=== PATIENT | male | born 1955 | race Caucasian/White ===

== ENCOUNTER 2016-12-31 04:13 | Inpatient (IN) ==
[2016-12-24 13:03] LABS: MANUAL DIFF NEEDED? NO
[2016-12-24 13:03] LABS: URINE MICRO REVIEW NEEDED? NO; URINE SOURCE CLEAN CATCH
[2016-12-24 13:31] LABS: BILIRUBIN URINE NEGATIVE (NEGATIVE); BLOOD URINE NEGATIVE (NEGATIVE); COLOR YELLOW; GLUCOSE URINE NEGATIVE (NEGATIVE); LEUKOCYTES URINE NEGATIVE (NEGATIVE); NITRITE URINE NEGATIVE (NEGATIVE); PROTEIN URINE NEGATIVE (NEGATIVE); SP GRAVITY URINE 1.019; TURBIDITY URINE CLEAR (CLEAR); UR EPITHELIAL CELLS <10 /HPF (<10); URINE BACTERIA NEGATIVE /HPF; URINE RBC <10 /HPF (<10); URINE WBC <10 /HPF (<10); UROBILINOGEN URINE NORMAL (NORMAL)
[2016-12-24 13:31] LABS: BASO% 0.4 % (0.0-0.8); EOS# 0.25 X1000 (0.0-0.7); EOS% 3.6 % (0.0-10.0); HEMATOCRIT 43.8 % (42.0-52.0); HEMOGLOBIN 14.2 g/dL (14.0-18.0); LYMPH# 2.06 X1000 (1.2-3.4); LYMPH% 29.6 % (20.5-51.1); MCH 30.9 PG (27-31); MCHC 32.4 g/dL (33-37); MCV 95.2 FL (81-99); MONO# 0.56 X1000 (0.11-0.59); NEUT% 58.4 % (42.2-75.2); PLT 237 X1000 (130-400)
[2016-12-24 13:44] LABS: INR 0.98; PROTIME 10.4 Seconds (9.2-11.7); PTT 25.6 Seconds (22.0-36.0)
--- NOTE | 2016-12-24 13:58 | EKG Report ---
Test Performed on : 12/24/2016 12:49:06 PM Test Reason : PAT Blood Pressure : / mmHG Vent. Rate : 082 BPM Atrial Rate : 131 BPM P-R Int : 000 ms QRS Dur : 094 ms QT Int : 360 ms P-R-T Axes : 000 043 -81 degrees QTc Int : 420 ms Atrial fibrillation. with a competing junctional pacemaker. Nonspecific T wave abnormality Abnormal ECG No previous ECGs available Confirmed by Cortney LU, Dayne Gorman ([id number]) on 12/26/2016 5:20:04 PM
[2016-12-24 14:11] LABS: AGAP 13; BUN 16 mg/dL (8-22); CALCIUM 10.3 mg/dL (8.8-10.2); CHLORIDE 99 mmol/L (98-107); COSMO 287; POTASSIUM 4.2 mmol/L (3.5-5.1); SODIUM 140 mmol/L (136-145); TCO2 28 mmol/L (25-35)
[2016-12-31] MEDS ORDERED: COLACE ONE (08:03)
[2016-12-31] MEDS ORDERED: LYRICA ONE (08:04)
[2016-12-31] MEDS ORDERED: REGLAN ONE (08:04)
[2016-12-31] MEDS ORDERED: CELEBREX ONE (08:04)
[2016-12-31] MEDS ORDERED: PEPCID ONE (08:04)
[2016-12-31] MEDS ORDERED: KEFZOL 2 GM/D5W 50 ML ONE (08:05)
[2016-12-31] MEDS ORDERED: LR 1,000 ML ONE ×2 (08:05→13:54)
[2016-12-31] MEDS ORDERED: DIPRIVAN 1% 100 ML ONE (08:38)
[2016-12-31] MEDS ORDERED: TORADOL ONE (09:19)
[2016-12-31] MEDS ORDERED: VANCOMYCIN ONE ×2 (09:20→11:05)
[2016-12-31] MEDS ORDERED: CYKLOKAPRON 1,000 MG/NS 100 ML ONE ×2 (09:20→09:21)
[2016-12-31] MEDS ORDERED: SODIUM CHLORIDE 0.9% ONE (09:20)
[2016-12-31] MEDS ORDERED: EXPAREL 1.3% ONE (09:20)
[2016-12-31] MEDS ORDERED: MARCAINE 0.25% PF/EPI 1:200,000 ONE (09:20)
[2016-12-31] MEDS ORDERED: DURAMORPH ONE (09:20)
[2016-12-31] MEDS ORDERED: CLAVE SECONDARY SET 11953 ONE (09:20)
[2016-12-31] MEDS: NEOSPORIN G.U. IRRIGANT ONE ×2 (10:15→11:23)
[2016-12-31 10:46] LABS: URINE MICRO REVIEW NEEDED? NO; URINE SOURCE CATH
[2016-12-31 11:04] LABS: BILIRUBIN URINE NEGATIVE (NEGATIVE); BLOOD URINE NEGATIVE (NEGATIVE); COLOR YELLOW; GLUCOSE URINE NEGATIVE (NEGATIVE); LEUKOCYTES URINE NEGATIVE (NEGATIVE); NITRITE URINE NEGATIVE (NEGATIVE); PROTEIN URINE NEGATIVE (NEGATIVE); SP GRAVITY URINE 1.016; TURBIDITY URINE CLEAR (CLEAR); UROBILINOGEN URINE NORMAL (NORMAL)
[2016-12-31 11:05] LABS: UR EPITHELIAL CELLS <10 /HPF (<10); URINE BACTERIA NEGATIVE /HPF; URINE RBC <10 /HPF (<10); URINE WBC <10 /HPF (<10)
[2016-12-31] MEDS ORDERED: NEOSPORIN G.U. IRRIGANT ONE (11:20)
[2016-12-31] MEDS ORDERED: DIPRIVAN 1% ONE (12:30)
[2016-12-31] MEDS ORDERED: VERSED ONE (12:30)
[2016-12-31] MEDS ORDERED: NS 1,000 ML ONE (12:31)
[2016-12-31] MEDS ORDERED: PROSCAR PO SCH (13:00)
[2016-12-31] MEDS ORDERED: DITROPAN PO SCH (13:00)
[2016-12-31] MEDS ORDERED: SAVAYSA PO SCH (13:00)
[2016-12-31] MEDS ORDERED: UROXATRAL PO SCH (13:00)
[2016-12-31] MEDS ORDERED: FENTANYL ONE (13:02)
[2016-12-31] MEDS ORDERED: DECADRON ONE (13:54)
[2016-12-31] MEDS ORDERED: EPHEDRINE ONE (13:54)
[2016-12-31] MEDS ORDERED: ZOFRAN ONE (13:54)
[2016-12-31] MEDS ORDERED: OFIRMEV 1000 MG/ISOTONIC SOLN 100 ML ONE (13:54)
[2016-12-31] MEDS ORDERED: MORPHINE IV PRN (14:32)
--- NOTE | 2016-12-31 14:36 | Diag Imaging Result Document ---
PROCEDURE NAME: KNEE 1-2 VIEWS-RIGHT - 12/31/2016 PLAIN RADIOGRAPH OF THE RIGHT KNEE, 2 VIEWS: COMPARISON: None available. FINDINGS: There is a newly placed right hip arthroplasty. The arthroplasty hardware is in the expected position. There is no evidence of periprosthetic fracture. Anterior skin nj and a drainage catheter are in place. IMPRESSION: Satisfactory postoperative knee.
[2016-12-31] MEDS ORDERED: MILK OF MAGNESIA PO PRN (14:45)
[2016-12-31] MEDS ORDERED: ZOFRAN PO PRN (14:45)
[2016-12-31] MEDS: OXY IR PO PRN ×3 (14:56→21:59)
[2016-12-31] MEDS: NS 1,000 ML IV SCH (15:00)
[2016-12-31] MEDS: KEFZOL 2 GM/D5W 50 ML IV SCH (18:01)
--- NOTE | 2016-12-31 18:03 | HISTORY AND PHYSICAL ---
CHIEF COMPLAINT: Right knee pain. HISTORY OF PRESENT ILLNESS: Mr. Lambert is a 61-year-old white male with a history of right knee pain for about 2 years now. He is admitted to the hospital today for a right total knee arthroplasty. Images taken of his right knee revealed images consistent with advanced degenerative joint disease. PAST MEDICAL HISTORY: Sleep apnea, atrial fibrillation, kidney stone, benign prostatic hypertrophy, osteoarthritis. SURGICAL HISTORY: Bilateral cataracts, right ACL repair, lumbar surgery, appendectomy. FAMILY HISTORY: Noncontributory. SOCIAL HISTORY: He is . Denies tobacco. Report alcohol occasionally. CURRENT HOME MEDICATIONS ARE: Cardizem 120 mg p.o. daily. Finasteride 5 mg p.o. daily. Uroxatral 10 mg p.o. daily. Oxybutynin 5 mg p.o. daily. Savaysa 60 mg p.o. daily. Centrum Silver 1 p.o. daily. Co-Q10, 1 capsule p.o. daily. ALLERGIES: No known drug allergies. PRIMARY CARE PROVIDER: Dr. Franco. REVIEW OF SYSTEMS: HEENT: Is negative for any HEENT problems. Cardiac: Patient reports having atrial fibrillation. Denies any other heart problems. Pulmonary: Patient denies any pulmonary problems. Gastrointestinal: Patient denies any gastrointestinal problems, any nausea, vomiting, or diarrhea. Genitourinary: The patient reports having benign prostatic hypertrophy. Denies any other genitourinary problems. Neurological: Patient denies any dysesthesias or any neurological deficits. Musculoskeletal: The patient reports right knee pain. PHYSICAL EXAMINATION: GENERAL: The patient is awake, sitting up in bed. He is articulate and able to answer questions appropriately. HEENT: Head is normocephalic, atraumatic. Pupils equal, round, reactive to light. Nares patent. Throat without exudate. CARDIAC: S1, S2 auscultated. No murmur, rub or gallop noted. LUNGS: Clear to auscultation bilaterally in all lung hughes. GASTROINTESTINAL: Abdomen is soft, nontender, nondistended. Bowel sounds present in all quadrants. GENITOURINARY: Not examined. NEUROLOGICAL: Patient has good sensation to dull touch in all extremities. Cranial nerves 2-12 grossly intact. MUSCULOSKELETAL: Physical examination of the right knee reveals pain with passive range of motion. IMPRESSION: Right knee osteoarthritis. PLAN: Right total knee arthroplasty. The risks, benefits, and alternatives of surgery were discussed with the patient including risk of anesthesia, bleeding, damage to blood vessels, nerves, tendons, ligaments, and other imponderables were discussed and the patient agrees to proceed with surgery at this time. Dictated by MINO Wise for Titi Liriano MD
--- NOTE | 2016-12-31 18:04 | OPERATIVE NOTE ---
PROCEDURE DATE: 12/31/2016 PREOPERATIVE DIAGNOSIS: Degenerative osteoarthritis of the right knee. POSTOPERATIVE DIAGNOSIS: Degenerative osteoarthritis of the right knee. PROCEDURE: Right total knee arthroplasty with DePuy Attune size 7 posterior stabilized femur, size 6 tibial tray, and a 5 mm rotating platform tibial insert, and a 38 mm medialized anatomic patella. SURGEON: Dr. Titi Liriano BAND EDGER: MINO De Luna. ANESTHESIA: Spinal. IV FLUIDS: 2500 mL lactated Ringer's. ESTIMATED BLOOD LOSS: 50 mL. TOURNIQUET TIME: 2 hours at 350 mmHg. COMPLICATION: Intraoperative medial condyle fracture stabilized with 7.3 cannulated screws. INDICATION: Patient was 61-year-old male with a chronic history of worsening pain and discomfort of his right knee. He has had previous ACL reconstruction many years ago. His pain has progressed to affect his activities of daily living. X-rays revealed significant degenerative osteoarthritis. Recommendation to proceed with right total knee arthroplasty was offered. Risks and benefits of surgery were explained, including the risks of anesthesia, , bleeding, infection, failure to relieve pain, postop stiffness nerve injury blood clots, and other imponderables. All questions were answered. The patient and family wished to proceed with surgery. DETAILS OF OPERATION: The patient was taken to the operating room and underwent spinal anesthesia. After adequate anesthesia was obtained, patient's right lower extremity subsequently prepped and draped in usual sterile fashion. An Esmarch was used to exsanguinate the right lower extremity and the tourniquet was inflated to 350 mmHg. A standard anterior incision was made with a skin knife. Medial and lateral skin envelopes were developed. Standard medial parapatellar arthrotomy was then performed. Patellar fat pad was excised. Retractors were then placed. 1 cm anterior to the PCL insertion, a starting reamer was passed. Intramedullary guide with an distal femoral cutting block was pinned in position. Distal femoral cut was then performed in standard fashion. A sizing block was placed and measured size 7. Corresponding pins were placed. A size 7 cutting block was then placed in position. Anterior, posterior, chamfer cuts were then made. After this had been performed, attention was then turned to the proximal tibia where further resection of the ACL and PCL was performed. Using the extramedullary guide, the proximal tibia cutting block was pinned in position. Had good alignment confirmed with the alignment abril. The proximal tibia was then resected in standard fashion. Medial and lateral meniscus was excised. A curved osteotome was used to remove the posterior osteophytes. The spacer block was placed and had good soft tissue balance with both flexion and extension. Attention then turned to the proximal tibia where a size 6 tibial tray appeared to correct size. This was pinned in position. This was followed by a central reamer and a fin punch. Attention was then turned to the distal femur. A box cutting guide was pinned in position. A box cut was then performed. A trial femoral component was then placed. There appeared to be some tightness in the extension. Attention then turned to the patella where it was everted and resected in standard fashion. A size 38 appeared to correct size. Corresponding holes were drilled. Had good patellofemoral tracking. Given the patient's tightness, I proceeded with further resection of the distal femur. Using the guide, a chamfer cutting block was placed in position and chamfer cuts were performed once again as well as the box cutting guide. After this has had been performed , the wounds were copiously irrigated with antibiotic pulsatile lavage while vancomycin was mixed in cement on back table. The cement was then placed at the tibial tray and excess cement was removed with a [place]. While cementing the femoral component, the patient did have a fracture develop in the medial condyle. After this was noted, stopped with the cement, the tibial component was removed along with cement and attention turned to the medial condylar fracture. A tenaculum was then used to reduce the fracture. Two 7.3 cannulated screws were then placed from medial to lateral and had excellent purchase and good stability of the fracture. After this had been performed, the wound was closed irrigated once again. The cement was removed with vancomycin on the back table. Sequential cementing was then performed 1st for the tibial tray and excess cement was removed with a [place], followed by the femoral component and excess cement was removed with a [place], followed by tibial insert and axial loading, full extension was maintained while the cement hardened. Patella was cemented in a standard fashion. Patella clamp was placed. Of note, the tibial metal interference screw had required removal prior to placement of trial tibial tray. A bone block was placed, some autologous bone graft was placed into the tibial hole prior to cementing. While cement was hardening, Exparel was placed in the soft tissue as well as subcutaneous tissue. A 5 mm rotating formed tibial insert appeared to be the correct size. The trial component was removed. Exparel was placed through the posterior capsule, followed by a 5 mm rotating platform tibial insert. Exparel was placed in deep posterior capsule while exchanging the tibial insert. Range of motion was then conducted and had good range of motion and good stability. A 1/8 Hemovac drain was placed was not sewn in. Copious irrigation was then performed once again with antibiotic pulsatile lavage. 2-0 Vicryl was used to repair the subcutaneous tissue followed by skin nj. Adaptic, sterile 4 x 4's, Webril, cryo unit, Herb wrap was applied to the right lower extremity. The patient tolerated the procedure well. There were no complications. Transferred to recovery room in stable condition. [facility]ITALGavin
[2016-12-31] MEDS: COLACE PO SCH (20:09)
[2016-12-31] MEDS: PERIDEX MT SCH (20:09)
[2016-12-31] MEDS: TYLENOL PO SCH (20:09)
[2017-01-01] MEDS: OXY IR PO PRN ×5 (01:04→12:12)
[2017-01-01] MEDS: TYLENOL PO SCH ×2 (01:16→07:54)
[2017-01-01] MEDS: KEFZOL 2 GM/D5W 50 ML IV SCH (01:16)
[2017-01-01] MEDS: NS 1,000 ML IV SCH (01:20)
[2017-01-01] MEDS ORDERED: XARELTO PO SCH (06:00)
[2017-01-01 06:16] LABS: HEMATOCRIT 36.5 % (42.0-52.0); HEMOGLOBIN 11.5 g/dL (14.0-18.0)
[2017-01-01 06:28] LABS: AGAP 12; BUN 14 mg/dL (8-22); CALCIUM 9.3 mg/dL (8.8-10.2); CHLORIDE 101 mmol/L (98-107); COSMO 280; POTASSIUM 4.4 mmol/L (3.5-5.1); SODIUM 138 mmol/L (136-145); TCO2 25 mmol/L (25-35)
[2017-01-01] MEDS: PERIDEX MT SCH (07:52)
[2017-01-01] MEDS: COLACE PO SCH (07:54)
--- NOTE | 2017-01-01 07:57 | PROGRESS NOTE ---
DATE: 01/01/2017 SUBJECTIVE: Patient is a pleasant, 61-year-old male who is 1 day status post right total knee arthroplasty. He has had some discomfort through the night. PHYSICAL EXAMINATION: On physical examination of his right knee, his wound dressing is intact. His calf is soft. He can perform a straight leg raise. He has active dorsiflexion and plantarflexion. Neurovascularly intact distally. LABORATORY DATA: Hemoglobin is 11.5, hematocrit is 36.5. IMPRESSION: Postoperative day #1 status post right total knee arthroplasty. PLAN: At this point, we will discontinue his drain and change his dressing, and discontinue his Porter. We will mobilize with physical therapy. Plan on discharging home after therapy. Patient will receive home physical therapy. I will see him back. He will follow up in the office in 13 days for staple removal.
[2017-01-01] MEDS ORDERED: PEPCID PO SCH (09:00)
[2017-01-01] MEDS ORDERED: CARDIZEM CD PO SCH (09:00)
[2017-01-01] MEDS ORDERED: CENTRUM SILVER PO SCH (09:00)
[2017-01-01] MEDS ORDERED: DECADRON IV ONE (09:00)
[2017-01-01 13:53] VITALS: BP 138/69
== END 2017-01-01 15:00 | disposition home health service (06) | DRG 470 ==
LOC: SURHOLD 04:13 → 4N 12:36
PROVIDERS: ADMIT Orthopaedic Surgery Adult Reconstructive Orthopaedic Surgery; ATTEND Orthopaedic Surgery Adult Reconstructive Orthopaedic Surgery
PROC: 0SRC0J9 Replacement of Right Knee Joint with Synthetic Substitute, Cemented, Open Approach (ICD-10-PCS; principal; 2016-12-31 09:27)
DX: M17.11 Unilateral primary osteoarthritis, right knee (principal); I48.91 Unspecified atrial fibrillation; Z87.442 Personal history of urinary calculi; N40.0 Benign prostatic hyperplasia without lower urinary tract symptoms; Z87.891 Personal history of nicotine dependence; G47.33 Obstructive sleep apnea (adult) (pediatric); Z79.899 Other long term (current) drug therapy
CPT/HCPCS: 73560; 80048; 81001; 85014; 85018; 85025; 85610; 85730; 86850; 86900; 86901; 88305; 88311; 93005; 93010; 94761; 94799; C9290; J0131; J0690; J1100; J1885; J2250; J2270; J2274; J2405; J3010; J3370; J7030; J7120; 97110-GP; 97116-GP; 97530-GP; S0020